=== PATIENT | female | born 1985 | race Caucasian/White ===

== ENCOUNTER → 2016-10-16 | Outpatient (CLI) | payer BC | LOC: BMCIMAGING 07:56 | PROVIDERS: ATTEND Internal Medicine | DX: K76.0 Fatty (change of) liver, not elsewhere classified (principal) ==

== ENCOUNTER 2017-09-21 16:00 | Emergency (ER) | payer BC, OTHER ==
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
[2017-09-21] MEDS ORDERED: DEXAMETHASONE 4 MG/ML VIAL IVP ONE (16:32)
[2017-09-21] MEDS ORDERED: DIAZEPAM 5 MG/ML 1 ML SYR IVP ONE (16:32)
[2017-09-21] MEDS ORDERED: KETOROLAC 15 MG/1 ML SDV IVP ONE (16:32)
[2017-09-21 19:18] VITALS: BP 163/104
== END 2017-09-21 19:17 | disposition home or self-care (01) ==
DX: M48.061 Spinal stenosis, lumbar region without neurogenic claudication (principal); M48.04 Spinal stenosis, thoracic region; M51.24 Other intervertebral disc displacement, thoracic region; M47.818 Spondylosis without myelopathy or radiculopathy, sacral and sacrococcygeal region; J45.909 Unspecified asthma, uncomplicated
CPT/HCPCS: 96374; J1100; J1885; J3360

== ENCOUNTER → 2018-03-24 | Outpatient (CLI) | payer OTHER | LOC: BRMIMAGING 09:14 | PROVIDERS: ATTEND Internal Medicine | DX: N63.22 Unspecified lump in the left breast, upper inner quadrant (principal) | CPT/HCPCS: 76641-PO ==